=== PATIENT | male | born 1930 | race Caucasian/White ===

== ENCOUNTER → 2017-02-06 | Outpatient (CLI) | payer MEDICARE, OTHER ==
[~2017-02-06] MED LIST: BACI500O9 TOPICAL; CARV3.12 PO; CARV3.125 PO; CLOP75 PO; HYDR-3516 PO; LORTA5 PO; NIAC500T5 PO; NIAS10004 PO; PARO10TA PO; PAXI10TA2 PO; PLAV75TA29 PO; PROSTATE MED; SINE25100 PO; SINE25TA PO; ZOCO40TA PO
[2017-02-06 10:57] LABS: AUTOMATED NEUTROPHIL # 3.3 TH/MM3 (1.8-7.7); BASOPHIL % 0.5 % (0.0-2.0); EOSINOPHIL # 0.2 TH/MM3 (0-0.4); EOSINOPHIL % 3.4 % (0.0-4.0); HEMATOCRIT 39.3 % (39.0-51.0); HEMO FLAGS DIFF FINAL; LYMPH % 27.1 % (9.0-44.0); LYMPHOCYTE # 1.5 TH/MM3 (1.0-4.8); MEAN CELL VOLUME 88.7 FL (80.0-100.0); MEAN CORPUSCULAR HEMOGLOBIN 29.2 PG (27.0-34.0); MEAN CORPUSCULAR HGB CONC 32.9 % (32.0-36.0); MONO % 10.3 % (0.0-8.0); NEUT % 58.7 % (16.0-70.0); PLATELET COUNT 152 TH/MM3 (150-450); RED BLOOD COUNT 4.43 MIL/MM3 (4.50-5.90); RED CELL DISTRIBUTION WIDTH 15.3 % (11.6-17.2); WHITE BLOOD COUNT 5.6 TH/MM3 (4.0-11.0)
[2017-02-06 11:46] LABS: ALKALINE PHOSPHATASE 102 U/L (45-117); ALT (GPT) 15 U/L (12-78); ANION GAP 6 MEQ/L (5-15); AST (GOT) 21 U/L (15-37); BICARBONATE 30.3 MEQ/L (21.0-32.0); BLOOD UREA NITROGEN 20 MG/DL (7-18); CHLORIDE 109 MEQ/L (98-107); GLOMERULAR FILTRATION RATE 55 ML/MIN (>89); GLUCOSE,FASTING 88 MG/DL (74-99); LDL CHOLESTEROL 63 MG/DL (0-99); POTASSIUM 4.3 MEQ/L (3.5-5.1); SODIUM (NA) 145 MEQ/L (136-145); TOTAL BILIRUBIN ADULT 0.5 MG/DL (0.2-1.0)
[2017-02-06 16:27] LABS: HEMOGLOBIN A1a 1.1 %; HEMOGLOBIN A1b 1.6 %; HEMOGLOBIN Ao 85.1 %; HEMOGLOBIN P3 3.8 %
== END ==
LOC: PLAB 09:22
PROVIDERS: ATTEND Family Medicine
DX: I25.10 Atherosclerotic heart disease of native coronary artery without angina pectoris (principal); R26.81 Unsteadiness on feet; G20 Parkinson's disease
CPT/HCPCS: 36415; 80053; 80061; 83036; 84443; 85025

== ENCOUNTER 2017-03-29 13:30 | Emergency (ER) | payer MEDICARE, OTHER ==
[~2017-03-29] VITALS: Ht 175.3 cm; Wt 92.4 kg
[~2017-03-29 13:30] MED LIST changes: -BACI500O9 TOPICAL; -CARV3.12 PO; -HYDR-3516 PO; -NIAC500T5 PO; -PAXI10TA2 PO; -PLAV75TA29 PO; -SINE25TA PO
[2017-03-29 13:33] VITALS: BP 160/74; PULSE 71; RESP 18; TEMP 97.7; O2SAT 98
--- NOTE | 2017-03-29 13:47 | PD ---
HPI Chief Complaint: Fall Time Seen by Provider: 13:47 Travel History International Travel<30 days: No Contact w/Intl Traveler<30days: No Traveled to known affect area: No History of Present Illness HPI 86-year-old male came to the emergency room with history of fall at 6 in the morning when he rolled out of his bed. Patient initially did not want to come in but then his left side of his chest started to hurt especially upon taking a deep breath or moving. Patient has a deep abrasion on his forehead and skin tear from the fall, which are still actively bleeding minimally. Vital signs are stable. Patient denies any loss of consciousness or being on any blood thinners. He does not remember his last tetanus shot. [facility] Past Medical History Narrative Medical List of his past medical, surgical, social and family history as reviewed from the nursing note. Blood Disorders: No Anxiety: Yes Cancer: No Cardiovascular Problems: Yes (bipass) High Cholesterol: Yes Coronary Artery Disease: Yes Diabetes: No Glaucoma: No Genitourinary: No Hepatitis: Yes Hiatal Hernia: No Hypertension: No Immune Disorder: No Implanted Vascular Access Dvce: Yes Musculoskeletal: No Neurologic: Yes Parkinson's Disease: Yes Psychiatric: No Reproductive: No Respiratory: No Immunizations Current: Yes Thyroid Disease: No Past Surgical History Abdominal Surgery: Yes (RIGHT INGUINAL HERNIA REPAIR) Cardiac Surgery: Yes (2002 CARDIAC BY-PASS 2002) Coronary Artery Bypass Graft: Yes (5 VESSEL) Genitourinary Surgery: Yes (TURP) Joint Replacement: Yes (RT KNEE) Oral Surgery: Yes (TONSILLECTOMY) Pacemaker: No Other Surgery: Yes Social History Alcohol Use: Yes Tobacco Use: No Substance Use: No Allergies-Medications (Allergen,Severity, Reaction): Coded Allergies: No Known Allergies (Verified , 03/29/17) Comments No known allergies. Reported Meds & Prescriptions Reported Meds & Active Scripts Active Bacitracin Topical 500 Unit/Gm Oint 1 Applic TOPICAL BID Hydrocodone-Acetaminophen 5-325 mg Tab 1 Tab PO Q6H PRN Reported Zocor (Simvastatin) 40 Mg Tab 40 Mg PO DAILY Niacin 500 Mg Tab 1,000 Mg PO DAILY Sinemet (Carbidopa-Levodopa) 25-100 Mg Tab 1 Tab PO Q8HR Plavix (Clopidogrel Bisulfate) 75 Mg Tab 75 Mg PO DAILY Carvedilol 3.125 Mg Tab 3.125 Mg PO DAILY Narrative Medication List of his past medical, surgical, social and family history as reviewed from the nursing note. Review of Systems Except as stated in HPI: all other systems reviewed are Neg Physical Exam Narrative GENERAL: Awake, alert, elderly, moderate distress, obese SKIN: Focused skin assessment warm/dry. Deep abrasion with skin tear on the left side of the forehead. There is a superficial laceration in the middle of the forehead that's linear but no active bleeding. HEAD: Atraumatic. Normocephalic. EYES: Pupils equal and round. No scleral icterus. No injection or drainage. ENT: No nasal bleeding or discharge. Mucous membranes pink and moist. NECK: Trachea midline. No JVD. CARDIOVASCULAR: Regular rate and rhythm. No murmur appreciated. RESPIRATORY: No accessory muscle use. Clear to auscultation. Breath sounds equal bilaterally. Tender on palpation on the left anterior and lateral aspect of the rib cage at about the ninth and 10th ribs. GASTROINTESTINAL: Abdomen soft, non-tender, nondistended. Hepatic and splenic margins not palpable. MUSCULOSKELETAL: No obvious deformities. No clubbing. No cyanosis. No edema. NEUROLOGICAL: Awake and alert. No obvious cranial nerve deficits. Motor grossly within normal limits. Normal speech. PSYCHIATRIC: Appropriate mood and affect; insight and judgment normal. Data Data Last Documented VS Vital Signs Date Time Temp Pulse Resp B/P Pulse Ox O2 Delivery O2 Flow Rate FiO2 03/29/17 16:54 70 18 152/70 98 Room Air 03/29/17 13:[address] Brain W/O Iv Contrast(Rout) (03/29/17 ) Ct Cerv Spine W/O Contrast (03/29/17 ) Ct Thorax/ Chest Wo Iv Contras (03/29/17 ) Tetanus/Diphtheria Tox Adult (Tetanus/Di (03/29/17 14:15) MDM Medical Decision Making Medical Screen Exam Complete: Yes Emergency Medical Condition: Yes Medical Record Reviewed: Yes Differential Diagnosis Intracranial bleed, skull fracture, abrasions, rib fracture, contusion Narrative Course 4:17 PM patient was given tetanus shot. CAT scan report of the head and chest are within normal limits. Awaiting for the CT C-spine report. If that's normal patient will be discharged home. Procedures EKG Prior to Arrival: No Diagnosis Primary Impression: Fall Qualified Code: W19.XXXA - Fall, initial encounter Additional Impressions: Head injury Qualified Code: S09.90XA - Head injury, initial encounter Abrasion Chest wall contusion Qualified Code: S20.212A - Chest wall contusion, left, initial encounter Referrals: Primary Care Physician Additional Instructions: Please apply the ointment twice a day on the wounds on her forehead. Take the medications as per the prescription direction. Return to the ER if the condition worsens or any other new concerns. Do not drive while on the pain medication since it'll make you groggy. Med/Other Pt SpecificInfo: Prescription(s) given Scripts Bacitracin Topical 500 Unit/Gm Oint1 Applic TOPICAL BID #7 GM Ref 0 Prov:Karen Meza MD 03/29/17 Hydrocodone-Acetaminophen 5-325 mg Tab1 Tab PO Q6H PRN (PAIN) #10 TAB Ref 0 Prov:Karen Meza MD 03/29/17 Disposition: 01 DISCHARGE HOME Condition: Stable Karen Meza MD Mar 29, 2017 13:47
[2017-03-29] MEDS ORDERED: PAXI10TA2 PO (13:49)
[2017-03-29] MEDS ORDERED: PLAV75TA29 PO (13:49)
[2017-03-29] MEDS ORDERED: NIAC500T5 PO (13:49)
[2017-03-29] MEDS ORDERED: CARV3.12 PO (13:49)
[2017-03-29] MEDS ORDERED: SINE25TA PO (13:49)
[2017-03-29] MEDS ORDERED: ZOCO40TA PO (13:49)
[2017-03-29] MEDS ORDERED: TETANUS/DIPHTHERIA TOXOID ADULT 0.5 ML VIAL IM ONE (14:15)
--- NOTE | 2017-03-29 15:25 | RADRPT ---
EXAM DATE/TIME: 03/29/2017 14:24 [facility] COMPARISON: No previous studies available for comparison. INDICATIONS : Trauma. Fall. Chest pain. RADIATION DOSE: 20.24 CTDIvol (mGy) MEDICAL HISTORY : Cardiovascular disease. Parkinsons. SURGICAL HISTORY : CABG ENCOUNTER: Initial ACUITY: 1 day PAIN SCALE: 5/10 LOCATION: Right chest TECHNIQUE: Volumetric scanning of the chest was performed. Using automated exposure control and adjustment of t he mA and/or kV according to patient size, radiation dose was kept as low as reasonably achievable to obtain optimal diagnostic quality images. DICOM format image data is available electronically for r eview and comparison. FINDINGS: LUNGS: There is no consolidation or pneumothorax. No concerning pulmonary nodule is visualized. Calcified g ranulomas identified in the left midlung. Mild bronchial wall dilatation and wall thickening is ident ified in both bases especially on the right. PLEURAE: There is no pleural thickening or pleural effusion. MEDIASTINUM: Heart is mildly enlarged. Postsurgical changes from prior CABG are noted. The heart and great vessels demonstrate no acute abnormality. There is no mediastinal or hilar lymphadenopathy. AXILLAE: Within normal limits. No lymphadenopathy. MUSCULOSKELETAL: Within normal limits for patient age. MISCELLANEOUS: The visualized upper abdominal organs demonstrate no acute abnormality. Left renal calculus is noted. 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 No evidence of consolidating infiltrate or significant congestion. Calcified granuloma left midlung. Mild cardiomegaly with evidence of prior CABG. Left nephrolithiasis. Carlos Reyes MD on March 29, 2017 at 15:18 Board Certified Radiologist. This report was verified electronically.
--- NOTE | 2017-03-29 15:29 | RADRPT ---
EXAM DATE/TIME: 03/29/2017 14:24 [facility] COMPARISON: CT BRAIN W/O CONTRAST, October 02, 2015, 21:30. INDICATIONS : Trauma. Fall. Head abrasions. RADIATION DOSE: 64.68 CTDIvol (mGy) MEDICAL HISTORY : Cardiovascular disease. Parkinson's. SURGICAL HISTORY : CABG ENCOUNTER: Initial ACUITY: 1 day PAIN SCALE: 0/10 LOCATION: Right frontal TECHNIQUE: Multiple contiguous axial images were obtained of the head. Using automated exposure control and adj ustment of the mA and/or kV according to patient size, radiation dose was kept as low as reasonably a chievable to obtain optimal diagnostic quality images. DICOM format image data is available electro nically for review and comparison. FINDINGS: Mild cerebral atrophy is noted. Mild periventricular and subcortical white matter small vessel ische jackie changes are noted bilaterally. There is no acute infarct, acute hemorrhage, mass effect or extraaxial fluid collections. Subgaleal hematoma is noted along the left frontoparietal skull. No underlying skull fracture is not ed. CONCLUSION: 1. Mild cerebral atrophy and periventricular/subcortical white matter small vessel ischemic changes bilaterally. 2. No acute infarct, acute hemorrhage, mass effect or extraaxial fluid collections. 3. Diffuse subgaleal hematoma along the left frontoparietal skull. Vicente Sheppard MD on March 29, 2017 at 14:54 Board Certified Radiologist. This report was verified electronically.
[2017-03-29] MEDS ORDERED: BACI500O9 TOPICAL (16:20)
[2017-03-29] MEDS ORDERED: HYDR-3516 PO (16:20)
[2017-03-29 16:54] VITALS: BP 152/70; PULSE 70; RESP 18; O2SAT 98
--- NOTE | 2017-03-29 17:26 | RADRPT ---
EXAM DATE/TIME: 03/29/2017 14:24 [facility] COMPARISON: No previous studies available for comparison. INDICATIONS : Trauma, fall, neck pain RADIATION DOSE: 26.64 CTDIvol (mGy) MEDICAL HISTORY : Parkinson's, cardiovascular disease. SURGICAL HISTORY : <<CABG> ENCOUNTER: <<Initial>> ACUITY: <<1 day>> PAIN SCALE: <<4/10>> LOCATION: <<Bilateral neck>> TECHNIQUE: Volumetric scanning of the cervical spine was performed. Multiplanar reconstructions in the sagittal, coronal and oblique axial planes were performed. Using automated exposure control and adjustment o f the mA and/or kV according to patient size, radiation dose was kept as low as reasonably achievable to obtain optimal diagnostic quality images. DICOM format image data is available electronically f or review and comparison. FINDINGS: There is no acute fracture or prevertebral soft tissue swelling. Degenerative changes are noted thro ughout the cervical spine. Scoliosis of the cervical spine is noted. The bony relationship and alig nment between C1 and C2 is well maintained. Moderate bilateral foraminal narrowing is noted at C3-4. Mild bilateral foraminal narrowing is noted at C4-5. Mild right neural foraminal narrowing is note d at C5-6. No spinal stenosis is noted. CONCLUSION: 1. No acute fracture or prevertebral soft tissue swelling. 2. Diffuse degenerative changes and scoliosis of the cervical spine. 3. Moderate bilateral foraminal narrowing at C3-4, mild bilateral foraminal narrowing at C4-5 and mi ld right neural foraminal narrowing at C5-6. Vicente Sheppard MD on March 29, 2017 at 15:11 Board Certified Radiologist. This report was verified electronically.
== END 2017-03-29 17:55 | disposition home or self-care (01) ==
LOC: PHED 13:30
DX: S09.90XA Unspecified injury of head, initial encounter (principal); S20.212A Contusion of left front wall of thorax, initial encounter; W06.XXXA Fall from bed, initial encounter; E78.00 Pure hypercholesterolemia, unspecified; I25.10 Atherosclerotic heart disease of native coronary artery without angina pectoris; G20 Parkinson's disease
CPT/HCPCS: 70450; 71250; 72125; 90471; 90714

== ENCOUNTER → 2017-08-16 | Outpatient (CLI) | payer MEDICARE, OTHER ==
[~2017-08-16] MED LIST changes: +BACI500O9 TOPICAL; +CARV3.12 PO; -CARV3.125 PO; -CLOP75 PO; +HYDR-3516 PO; -LORTA5 PO; +NIAC500T5 PO; -NIAS10004 PO; -PARO10TA PO; +PLAV75TA29 PO; -PROSTATE MED; -SINE25100 PO; +SINE25TA PO
[2017-08-16 10:34] LABS: ALT (GPT) 20 U/L (12-78); ANION GAP 7 MEQ/L (5-15); AST (GOT) 22 U/L (15-37); BICARBONATE 28.3 MEQ/L (21.0-32.0); BLOOD UREA NITROGEN 17 MG/DL (7-18); CHLORIDE 106 MEQ/L (98-107); GLOMERULAR FILTRATION RATE 57 ML/MIN (>89); GLUCOSE,FASTING 98 MG/DL (74-99); SODIUM (NA) 141 MEQ/L (136-145)
[2017-08-16 10:37] LABS: ALKALINE PHOSPHATASE 89 U/L (45-117); HDL CHOLESTEROL 73.7 MG/DL (40.0-60.0); LDL CHOLESTEROL 58 MG/DL (0-99); TOTAL BILIRUBIN ADULT 0.5 MG/DL (0.2-1.0)
== END ==
LOC: PLAB 07:49
PROVIDERS: ATTEND Family Medicine
DX: I25.10 Atherosclerotic heart disease of native coronary artery without angina pectoris (principal); G20 Parkinson's disease; E78.5 Hyperlipidemia, unspecified
CPT/HCPCS: 36415; 80053; 80061